=== PATIENT | male | born 2000 | race Caucasian/White ===

== ENCOUNTER 2025-01-02 09:29 | Outpatient (CLI) | payer OTHER | END 2025-01-02 09:30 | disposition home or self-care (01) | LOC: CT 09:29 | PROVIDERS: ATTEND Nurse Practitioner Family | DX: N13.30 Unspecified hydronephrosis (principal); N28.89 Other specified disorders of kidney and ureter; R93.49 Abnormal radiologic findings on diagnostic imaging of other urinary organs | CPT/HCPCS: 74177 ==